=== PATIENT | male | born 1945 | race Caucasian/White ===

== ENCOUNTER 2020-12-27 15:11 | Observation (INO) | payer MEDICARE ==
[~2020-12-27] VITALS: Ht 177.8 cm; Wt 73.3 kg
[~2020-12-27 15:11] MED LIST: ALPRAZOLAM ER0.5 MG PO; AUGMENTIN600 MG/5 M PO; CARBIDOPA-LEVO1 EA14 PO; CEFUROXIME500 MG PO; CILOXAN 0.3% O2.5 ML EYEBOTH; COMTAN200 MG PO; CYCLOBENZAPRINE5 MG PO; FISH OIL 1,0001 EACH PO; FLEET OIL ENEM133 ML PR; FLOMAX 0.4 MG0.4 MG PO; PATIENT'S OWN MEDICA PO; POLYETHYLENE GL17 GM PO; PROAMATINE 2.52.5 MG PO
[2020-12-27 15:40] LABS: HEMOGLOBIN 13.7 gm/dl (14.0-17.5); RED BLOOD COUNT 4.18 M/UL (4.20-5.50); WHITE BLOOD COUNT 8.2 K/UL (4.5-11.0)
[2020-12-27 16:15] LABS: BUN/CREATININE RATIO 19 (0-10)
[2020-12-27] MEDS ORDERED: CYCLOBENZAPRINE5 MG PO (23:35)
[2020-12-28 03:15] LABS: HEMOGLOBIN 12.6 gm/dl (14.0-17.5); RED BLOOD COUNT 3.89 M/UL (4.20-5.50); WHITE BLOOD COUNT 9.3 K/UL (4.5-11.0)
[2020-12-28 03:40] LABS: BUN/CREATININE RATIO 20 (0-10)
[2020-12-28] MEDS ORDERED: AUGMENTIN 875-1 EACH PO (12:16)
[2020-12-28] MEDS ORDERED: BACTRIM DS TAB1 EACH PO (12:16)
[2020-12-29 03:46] LABS: HEMOGLOBIN 11.5 gm/dl (14.0-17.5); RED BLOOD COUNT 3.57 M/UL (4.20-5.50); WHITE BLOOD COUNT 5.5 K/UL (4.5-11.0)
[2020-12-29 04:23] LABS: BUN/CREATININE RATIO 15 (0-10)
[2020-12-29] MEDS ORDERED: CEFUROXIME500 MG PO (11:19)
[2020-12-29] MEDS ORDERED: CILOXAN 0.3% O2.5 ML EYELF (11:19)
== END 2020-12-29 22:34 | disposition home or self-care (01) ==
LOC: ER1 15:11 → M/S 16:40 → CDU 16:40 → M/S 20:00
PROVIDERS: Emergency Medicine; Physician Assistant Medical; ADMIT Internal Medicine Infectious Disease
DX: N39.0 Urinary tract infection, site not specified (principal); G20 Parkinson's disease; N18.30 Chronic kidney disease, stage 3 unspecified; N40.0 Benign prostatic hyperplasia without lower urinary tract symptoms; H10.9 Unspecified conjunctivitis; Z86.79 Personal history of other diseases of the circulatory system; Z87.01 Personal history of pneumonia (recurrent); Z74.01 Bed confinement status; Z79.899 Other long term (current) drug therapy; Z20.822 Contact with and (suspected) exposure to COVID-19
CPT/HCPCS: 36415; 71045; 80048; 80053; 81001; 82550; 82553; 83605; 83735; 83874; 84484; 85025; 85027; 87040; 87077; 87086; 87186; 93005; 96374; 96376; 99285; G0378; J0696; U0002